=== PATIENT | male | born 1935 | race Caucasian/White ===

== ENCOUNTER 2018-10-17 15:37 | Emergency (ER) | payer OTHER, BC ==
[2018-10-17] MEDS ORDERED: ACETAMINOPHEN 325 MG TABLET (FP) PO ONE (16:19)
--- NOTE | 2018-10-17 16:20 | PDOC ---
History of Present Illness - General Chief Complaint: Injury Stated Complaint: RT WRIST INJURY Time Seen by Provider: 10/17/18 15:43 History Source: Patient Exam Limitations: No Limitations - History of Present Illness Initial Comments: 10/18/18 10:17 82 yo M with no previous medical history with last fracture of right arm when he was in his teens presents to the emergency department s/p fall on black ice at approximately 9am. per the patient, he denies the following symptoms antecedent to the event: nausea, vomiting, chest pain, palpitations, SOB, headaches, and visual changes. Per the patient, he was getting out of his car and slipped on the ice, landing onto his right wrist. Denies head trauma and LOC. He has had 10/10 pain that worsens with movement without radiation at the site of his right wrist since the fall. Denies the following: loss of motor and sensory function of the right hand, discoloration of the hand, chest pain, and SOB. Past History - Past Medical History Allergies/Adverse Reactions: Allergies Allergy/AdvReac Type Severity Reaction Status Date / Time No Known Allergies Allergy Verified 10/17/18 16:03 Home Medications: Ambulatory Orders NK [No Known Home Medication] 10/17/18 Review of Systems - Review of Systems Able to Perform ROS?: Yes Is the patient limited Ecuadorean proficient: No Constitutional: No: Chills, Diaphoresis, Fever HEENTM: No: Eye Pain, Recent change in vision, Ear Pain, Nose Pain, Throat Pain , Mouth Pain Respiratory: No: Cough, Shortness of Breath, Hemoptysis Cardiac (ROS): No: Chest Pain, Lightheadedness, Palpitations, Syncope, Chest Tightness ABD/GI: No: Constipated, Diarrhea, Nausea, Poor Appetite, Poor Fluid Intake, Rectal Bleeding, Vomiting, Tarry Stools : No: Burning, Dysuria, Hematuria, Urgency Musculoskeletal: Yes: Joint Pain (right wrist), Joint Swelling (right wrist). No: Back Pain, Neck Pain Integumentary: No: Bruising, Dryness, Lesions, Rash Neurological: No: Headache, Numbness, Tingling, Tremors, Ataxia, Dizziness Psychiatric: No: Change in Appetite Endocrine: No: Unexplained Weight Gain Hematologic/Lymphatic: No: Anemia *Physical Exam - Physical Exam General Appearance: Yes: Nourished, Appropriately Dressed. No: Apparent Distress, Intoxicated HEENT: positive: EOMI, LENNIE, Normal Voice, Pharynx Normal, Hearing Grossly Normal. negative: Pale Conjunctivae, Scleral Icterus (R), Scleral Icterus (L), Muffled/Hoarse voice, Pharyngeal Erythema, Tonsillar Exudate, Tonsillar Erythema , Nasal Congestion, Rhinorrhea, Sinus Tenderness, Excessive drooling Neck: positive: Trachea midline, Supple. negative: Tender, Lymphadenopathy (R) , Lymphadenopathy (L), Tender lateral, Tender midline Respiratory/Chest: positive: Lungs Clear, Normal Breath Sounds. negative: Chest Tender, Respiratory Distress, Accessory Muscle Use, Crackles, Rales, Rhonchi, Stridor, Wheezing Cardiovascular: positive: Regular Rhythm, Regular Rate, S1, S2. negative: Systolic Murmur Comments:: radial pulses bilateral 2+ Gastrointestinal/Abdominal: positive: Normal Bowel Sounds, Flat, Soft. negative : Tender, Guarding, Rebound, Tenderness Lymphatic: negative: Adenopathy Musculoskeletal: positive: Normal Inspection. negative: CVA Tenderness, Vertebral Tenderness Extremity: positive: Normal Capillary Refill, Tender (along the dorsal aspect of the lateral radius. no tenderness at the scaphoid. intact range of motion.), Swelling. negative: Normal Inspection Integumentary: positive: Normal Color, Dry, Warm Neurologic: positive: antitank assault gunner II-XII NML intact, Fully Oriented, Alert, Normal Mood/ Affect, Normal Response, Motor Strength 5/5. negative: EOM Palsy, Facial Droop , Sensory Deficit ED Treatment Course - RADIOLOGY Radiology Studies Ordered: Category Date Time Status WRIST- RIGHT [RAD] Stat Radiology 10/17/18 15:44 Ordered Medical Decision Making - Medical Decision Making 82 yo M with no previous medical history with last fracture of right arm when he was in his teens presents to the emergency department s/p fall on black ice at approximately 9am. Initial vitals: Initial Vital Signs Temp Pulse Resp BP Pulse Ox 98.2 F 74 20 147/71 100 10/17/18 15:37 10/17/18 15:37 10/17/18 15:37 10/17/18 15:37 10/17/18 15:37 Work up: ddx: distal radial fracture vs dislocation xray shows a closed non displaced fracture at the distal radial head that by report says is chronic/healing in nature vs acute. due to patient not having a previous fall with fracture in the past since in his teens, will treat as an acute fracture. sugar tong placed with retained distal pulses in the wrist. patient was able to move fingers. given strict return precautions with ortho referral and follow up in 1 week. Dispo: Discharge *DC/Admit/Observation/Transfer Diagnosis at time of Disposition: Distal radius fracture, right Qualifiers: Encounter type: initial encounter Fracture type: closed Fracture morphology: unspecified fracture morphology Qualified Code(s): S52.501A - Unspecified fracture of the lower end of right radius, initial encounter for closed fracture - Discharge Dispostion Disposition: HOME Condition at time of disposition: Improved Decision to Admit order: No - Referrals Referrals: [facility] [place] [Provider Group] Andre Horta MD [Staff Physician] - - Patient Instructions Printed Discharge Instructions: DI for Wrist Fracture Additional Instructions: you were seen for wrist injury. the xray shows distal radius nondisplaced fracture. use tylenol for pain management as prescribed. do not get the cast wet. please see orthopedics which is Dr Horta referred to you in 1 week after discharge for follow up care. please call to make an appointment. please return to the emergency department if you have worsening pain, discoloration in your hands, and loss of feeling in the hands and arm. thank you. - Post Discharge Activity
--- NOTE | 2018-10-17 16:36 | PDOC ---
Attending Attestation - Resident Resident Name: [email or web address] - ED Attending Attestation I have performed the following: I have examined & evaluated the patient, The case was reviewed & discussed with the resident, I agree w/resident's findings & plan - HPI HPI: 10/17/18 16:44 82 YOM with right wrist injury s/p trip and fall onto ice. +swelling and pain, worse with movement. - Physicial Exam PE: 10/17/18 16:44 No acute distress Upper Extremity: shoulder abduction/adduction/flexion/extension and prox strength 5/5 actively against resistance. 5/5 shoulder shrug strength. deltoid sensation intact; sensation grossly intact in median/radial/ulnar distribution. distal newspaper deliverer strength 5/5. 2+ radialis pulses bilaterally and symmetric. no scaphoid tenderness. right distal radius/wrist tenderness and palp swelling, mild crepitus on dorsal aspect. extension and flexion at wrist intact, 5/5 against resistance. - Medical Decision Making 10/17/18 16:46 hpi as documented VS wnl, reassuring. Xray of right wrist with partial, nondisplaced distal radius fx, not chronic/ partly healed, as pt did not have prior sx or injuries to his wrist (only his forearm as a teenager). treat as acute fx. no scaphoid tenderness noted, analgesia immobilization, sugar tong splint. ortho followup as outpatient, return precautions given. otc analgesia as needed , prn tylenol
[2018-10-17 16:39] VITALS: BP 147/71; PULSE 74; TEMP 98.2; BMI 25.1
[2018-10-17] MEDS ORDERED: ACETAMINOPHEN 325 MG TABLET (FP) ONE (16:40)
== END 2018-10-17 16:46 | disposition home or self-care (01) ==
LOC: FER 15:37
PROC: 2W3CX1Z Immobilization of Right Lower Arm using Splint (ICD-10-PCS; principal; 2018-10-17)
DX: S52.501A Unspecified fracture of the lower end of right radius, initial encounter for closed fracture (principal); W00.0XXA Fall on same level due to ice and snow, initial encounter; Y93.89 Activity, other specified; Y92.410 Unspecified street and highway as the place of occurrence of the external cause
CPT/HCPCS: 29126; 73110-TC-RT-FY; 99283-25

== ENCOUNTER 2023-08-30 08:05 | Day surgery (SDC) | payer OTHER, BC ==
[2023-08-24 15:36] VITALS: BMI 24.7
[2023-08-30] MEDS: TROPICAMIDE 1% OPHTH SOLN 15 ML BOTTLE ONE ×3 (08:35→08:45)
[2023-08-30] MEDS: CYCLOPENTOLATE 2% OPHTH SOLN 2 ML BOTTLE ONE ×3 (08:35→08:45)
[2023-08-30] MEDS: PHENYLEPHRINE 2.5% OPTHALMIC DROP 2ML BOTTLE ONE ×3 (08:35→08:45)
[2023-08-30] MEDS: CIPROFLOXACIN HCL 0.3% OPHTH 2.5ML BOTTLE ONE ×3 (08:35→08:45)
[2023-08-30] MEDS ORDERED: LIDOCAINE 1% P/F 10 MG/ML VIAL ONE (08:46)
[2023-08-30] MEDS ORDERED: NEO/POLYMYX B SULF/DEXAMETH OPHTHALMIC 5ML BOTTLE ONE (08:47)
[2023-08-30] MEDS ORDERED: CARBACHOL 0.01% INTRA-OCULAR 1.5 ML VIAL ONE (08:47)
[2023-08-30] MEDS ORDERED: TETRACAINE 0.5% OPHTH SOLN 2 ML BOTTLE ONE (08:47)
[2023-08-30] MEDS ORDERED: BSS (NA/CA/MG/K) BALANCED SALT SOLUTION OPHTH SOLN 15 ML BOTTLE ONE (08:47)
[2023-08-30] MEDS ORDERED: MIDAZOLAM HCL 2 MG/2 ML SINGLE DOSE VIAL ONE (09:24)
[2023-08-30] MEDS ORDERED: ONDANSETRON 4 MG/2 ML VIAL ONE (09:34)
[2023-08-30 10:18] VITALS: RESP 20
[2023-08-30 10:45] VITALS: BP 135/80; PULSE 60; TEMP 97.2
== END 2023-08-30 10:45 | disposition home or self-care (01) ==
LOC: FASU 08:05
PROVIDERS: ATTEND Ophthalmology
PROC: 08RJ3JZ Replacement of Right Lens with Synthetic Substitute, Percutaneous Approach (ICD-10-PCS; principal; 2023-08-30 09:36)
DX: H26.8 Other specified cataract (principal); H21.541 Posterior synechiae (iris), right eye
CPT/HCPCS: 66982; V2632